=== PATIENT | female | born 1975 | race Caucasian/White ===

== ENCOUNTER 2017-05-02 08:26 | Emergency (ER) | payer BC, OTHER ==
[~2017-05-02] VITALS: Ht 160 cm; Wt 86.6 kg
[~2017-05-02 08:26] MED LIST: AMBIEN10 MG PO; ATIVAN0.5 MG PO; BUTALB-CAFF-AC1 EACH PO; DEXILANT60 MG PO; FLEXERIL10 MG PO; GABAPENTIN300 MG PO; LORTAB 5-500 T1 EACH PO; MEDROL DOSEPAK4 MG PO; MOTRIN800 MG PO; NORCO 5/3251 TABLET PO; OXYCODONE-APAP1 EACH PO; OXYCONTIN20 MG PO; SOMA350 MG PO; TOPIRAMATE25 MG PO; ZANTAC150 MG PO; ZOLOFT50 MG PO; ZOLPIDEM TARTRA10 MG PO
[2017-05-02 09:11] LABS: BASOPHIL COUNT 0.1 K/uL (0-0.1); EOSINOPHIL (%) 3.1 % (0-5); EOSINOPHIL COUNT 0.2 K/uL (0-0.3); HEMATOCRIT 37.8 % (36.0-46.0); IMMATURE GRANULOCYTE (%) 0.3 % (0.0-0.7); INSTRUMENT ABS NEUTROPHIL CT 3.7 K/uL; LYMPHOCYTE COUNT 2.3 K/uL (1.0-2.8); MCH 29.5 PG (29.0-34.0); MCHC 33.6 G/DL (30.0-36.0); MCV 87.9 FL (83-99); MEAN PLAT.VOLUME 8.9 uM^3 (9.5-12.4); MONOCYTE (%) 6.4 % (3-12); MONOCYTE COUNT 0.4 K/uL (0-0.8); NEUTROPHIL (%) 55.7 % (45-76); NEUTROPHIL COUNT 3.7 K/uL (1.8-6.4); PLATELET COUNT 312 K/uL (156-360); RBC DIS.WIDTH-CV 12.7 % (11.8-14.6); RBC DIS.WIDTH-SD 40.4 % (39-53); WHITE BLOOD COUNT 6.7 K/uL (4.1-10.2)
[2017-05-02 09:17] LABS: INTER. NORMALIZED RATIO 1.1; PROTHROMBIN TIME 11.9 SEC (10.2-12.9)
[2017-05-02 09:24] LABS: ADD MIUA? YES; BILIRUBIN NEGATIVE; BLOOD SMALL; COLOR YELLOW ((YELLOW)); GLUCOSE (STRIP) NEGATIVE; KETONES NEGATIVE; LEUKOCYTES NEGATIVE; NITRITE NEGATIVE; PROTEIN (STRIP) NEGATIVE; SPECIFIC GRAVITY 1.028 (1.000-1.030); UROBILINOGEN 0.2 MG/DL (0.2-1.0)
[2017-05-02 09:26] LABS: CHLORIDE 105 mEq/L (99-109); POTASSIUM 4.1 mEq/L (3.7-5.4); SODIUM 140 mEq/L (136-147)
[2017-05-02 09:27] LABS: GLUCOSE 103 mg/dL (70-99)
[2017-05-02 09:29] LABS: ANION GAP 14 MEQ/L (2-14)
[2017-05-02 09:29] LABS: BACTERIA NONE SEEN /HPF; EPITHELIAL CELLS 1+ /HPF; MUCUS TRACE /LPF; RED BLOOD CELLS 0-5 /HPF (0-5); WHITE BLOOD CELLS 0-5 /HPF (0-5)
[2017-05-02 09:31] LABS: GFR ESTIMATE (CALCULATED) > 59 mL/min/
[2017-05-02 09:32] LABS: UREA NITROGEN (BUN) 18 mg/dL (9-23)
[2017-05-02 10:37] VITALS: BP 117/69
== END 2017-05-02 10:38 | disposition home or self-care (01) ==
LOC: EME 08:26
PROVIDERS: Emergency Medicine
DX: K62.5 Hemorrhage of anus and rectum (principal); K43.9 Ventral hernia without obstruction or gangrene; F31.9 Bipolar disorder, unspecified; F17.200 Nicotine dependence, unspecified, uncomplicated
CPT/HCPCS: 80048; 81003; 85025; 85610; 99281; 99284

== ENCOUNTER 2017-07-20 05:21 | Day surgery (SDC) | payer BC, OTHER ==
[~2017-07-20] VITALS: Ht 160 cm; Wt 88.4 kg
[~2017-07-20 05:21] MED LIST changes: +BACTRIM,SEPT1 TABLET PO
[2017-07-20 05:53] VITALS: BP 122/76
[2017-07-20] MEDS ORDERED: NORCO 5/3251 TABLET PO (08:57)
[2017-07-20 11:13] VITALS: BP 127/69
[2017-07-20 12:10] VITALS: BP 127/71
== END 2017-07-20 13:04 | disposition home or self-care (01) ==
LOC: SDC 05:21
PROC: 0WUF4JZ Supplement Abdominal Wall with Synthetic Substitute, Percutaneous Endoscopic Approach (ICD-10-PCS; principal; 2017-07-20)
DX: K43.6 Other and unspecified ventral hernia with obstruction, without gangrene (principal); K21.0 Gastro-esophageal reflux disease with esophagitis; E66.9 Obesity, unspecified; Z68.34 Body mass index [BMI] 34.0-34.9, adult; Z87.891 Personal history of nicotine dependence
CPT/HCPCS: 87641; C1727; C1781; J0131; J0330; J0690; J1100; J1170; J2001; J2405; J2710; J2795; J3010; J3475

== ENCOUNTER 2018-01-02 21:38 | Inpatient (IN) | payer BC, OTHER ==
[~2018-01-02] VITALS: Ht 160 cm; Wt 84.1 kg
[~2018-01-02 21:38] MED LIST changes: +TYLENOL EXTRA500 MG PO; +[UNRECOGNIZED DRUG - OTHER] PO
[2018-01-03] MEDS ORDERED: DYAZIDE, MA1 CAPSULE PO (05:47)
[2018-01-03 05:50] VITALS: BP 156/91
[2018-01-03 12:53] VITALS: BP 110/60
[2018-01-03 16:00] VITALS: BP 125/69
[2018-01-03 19:30] VITALS: BP 122/66
[2018-01-03 20:54] VITALS: BP 130/60
[2018-01-03 23:46] VITALS: BP 126/59
[2018-01-04 04:34] VITALS: BP 110/62
[2018-01-04 08:28] VITALS: BP 104/58
[2018-01-04 11:30] VITALS: BP 100/56
[2018-01-04 16:27] VITALS: BP 108/66
[2018-01-05 00:06] VITALS: BP 115/59
[2018-01-05 07:30] VITALS: BP 120/70
[2018-01-05 15:45] VITALS: BP 120/78
[2018-01-05] MEDS ORDERED: CYCLOBENZAPRINE10 MG PO (16:06)
[2018-01-05] MEDS ORDERED: DIAZEPAM5 MG PO (16:06)
[2018-01-05] MEDS ORDERED: ENDOCET 5-3251 EACH PO (16:06)
[2018-01-05] MEDS ORDERED: OXYCONTIN10 MG PO (16:06)
== END 2018-01-05 17:15 | disposition home or self-care (01) | DRG 460 ==
LOC: ENRESERV 21:38 → 2SOUTH 01-03 05:33 → ENRESERV 01-03 11:43 → 3EAST 01-03 12:51 → 2SOUTH 01-03 15:36 → 3EAST 01-05 17:15
DX: M47.26 Other spondylosis with radiculopathy, lumbar region (principal); M51.17 Intervertebral disc disorders with radiculopathy, lumbosacral region; M99.03 Segmental and somatic dysfunction of lumbar region; K21.9 Gastro-esophageal reflux disease without esophagitis; E66.9 Obesity, unspecified; Z68.32 Body mass index [BMI] 32.0-32.9, adult; Z87.891 Personal history of nicotine dependence; Z86.14 Personal history of Methicillin resistant Staphylococcus aureus infection
CPT/HCPCS: 72100; 76000; 86850; 86900; 86901; 87641; 94799; C1713; J0131; J0690; J1170; J1885; J2250; J2270; J2405; J2710; J3010; J3370; J3480; J7643; Q0175